=== PATIENT | female | born 1965 | race Caucasian/White ===

== ENCOUNTER 2024-08-18 08:17 | Outpatient (AMB) | payer MEDICARE, MEDICAID, SELFPAY ==
--- OUTSIDE RECORDS SUMMARY | 2024-03-02 10:20 | XMS_ITS ---
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 :1965 A ge:58 Y S ex:Female Date:03/02/2024 Address:[address] [place] [address] Subjective: * Chief Complaints: * 1 . 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 * Medical History: Objective: * Vitals: Assessment: Plan: * Treatment: * Images: Billing Information: * Visit Code: * Procedure Codes: * Electronic signature of Narcisa Russo MD on 08/18/2024 at 08:21 AM EDT Sign off status: Pending * Appointment Provider: Abhinav Russo M.D. Date: 03/02/2024 Generated for Luis cm/Edin/Chaiitting on: 08/18/2024 08:21 AM EDT
--- NOTE | 2024-08-18 08:22 | A.OFFVIS_ITS ---
Vital Signs 08/18/24 08:23 Height 5 ft 5 in Weight 185 lb 10.067 oz BMI 30.9 BP 136/76 Blood Pressure Location Lt brachial Position Sitting Pulse 84 Pulse Source Pulse Oximeter Pulse Oximetry (%) 95 Oxygen Delivery Method Room Air Intake Visit Reasons: Psoriatic Arthritis/MD approved Intake Note: Patient presents for a visit with psoriatic arthritis. Allergies No Known Allergies Allergy (Verified 08/18/24 08:27) HPI HPI Psoriatic Arthritis/ approved: Details: New patient evjoni. 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 She had shingles x3 last years. It affected her right facial region last time then back x2 prior in the last year. A few years she had shingles affected her back. She had to hold humira in the last two years. 2022 she had recurrent infections and has not consistently used Humira. She saw Dr. 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 She saw Dr. Minor 30 years ago who diagnosed her with PsA. Initially she presented with knee swelling then progressed dactyltis (20s) and polyarticular disease. Initially she had disability and required a wheelchair to ambulate. She had difficulty taking care of her young daughter at the time. Sulfasalazine not effective. Methotrexate - hair fell out. She was on celebrex since the beginning. Secondary treatment failure enbrel after 10 years. Then she was switched to Humira 2021. Meloxicam either ineffective or she had a side effect. Humira is controlling PsO. SHe had PsO on hands, feet, arms. SHe has a reminant of PsO behind ears, right elbow and left forearm. She caught right 5th finger in the door. Constant 5th PIP pain. Splinting makes it worse. She had deformity develop in the last year in right 5h finger. When she flares she has pain in her knuckles. She has pain in right 1-2nd toes. She saw [facility] last fall. MRI [facility] revealed metatarsal inflammation. She was in soft cast for a few months, which relieved the pain. Orthotics was ordered but patient did not pick it up. She feels like she is walking on her bones. Her ankle is not moving correctly. Hard to step down in the morning. She is not walking as she used to. No dactlitis MS hours She had SI joint injections from Dr. Hernandez with last injection occurring 3 years ago. She has had back pain when she was younger. She had uveitis bilateral 2019. She has costochondritis. Hx diverticulosis. Hepatic steotosis with fluctuating LFTs. She has history of fibromyalgia. Gabapentin was started for post herpetic neuralgia. Her spine doctor wants her to continue taking gabapentin for neck pain that has contri buted to nerve impingement symptoms in the past. Physical Exam Vital Signs: Last Vital Signs Pulse 84 08/18/24 08:23 BP 136/76 08/18/24 08:23 Pulse Ox 95 08/18/24 08:23 Oxygen Delivery Method Room Air 08/18/24 08:23 BMI result Body Mass Index 30.9 Const Other: General: Comfortable CVS: RRR Respiratory: clear to auscultation bilaterally. Good respiratory effort Skin: She has plaque psoriasis right extensor surface of elbow and papules left forearm. MSK: Tender right 2nd to 4th MCPs, 2nd to 4th PIPs with synovitis of 5th PIP and DIPJ. [place] nodes present including 5th DIPJ. Tender left 2nd and 3rd MCP. She has bilateral trochanteric bursa tenderness. Bilateral ankles and MTP s are tender. Slight synovitis of bilateral ankles. Assessment & Plan Assessment & Plan (1) Psoriatic arthritis: Comment: Uncontrolled on Humira. Psoriasis has been controlled on Humira. She has been taking Humira monthly instead of every 14 days due to fear of having a recurrent infection. Inadequate dosing is contributing to uncontrolled disease. 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 We discussed next steps in management of psoriatic arthritis and psoriasis. Discussed treatment options with patient. I recommend Cosentyx to treat both psoriasis and psoriatic arthritis. The dosing regimen for Cosentyx for indication psoriasis is higher (300mg) compared to psoriatic arthritis (150mg). We discussed that it would be best if Dr. Saenz is able to process the prior authorization for Cosentyx to cover treatment for both of her chronic autoimmune diseases. Another consideration could be for Stelara to treat both psoriasis and psoriatic arthritis. Prior to Humira she had severe psoriasis and psoriatic arthritis. I am avoiding TNF inhibitors at this time. I do not advise patient to stop Humira until Cosentyx is approved as her diseases can worsen. Answered patient's questions to her satisfaction. Rheumatology history: Dr. Minor 30 years ago diagnosed her with PsA. Initially she presented with knee swelling then progressed to involve dactyltis in her hands (20s) then became polyarticular. She had diffuse psoriasis involving her extremities. Sulfasalazine not effective. Methotrexate discontinued due to hair loss. She was on celebrex since the beginning of her diagnosis of psoriatic art hritis. Meloxicam either ineffective or she had a side effect. Secondary treatment failure with Enbrel after 10 years. Then she was switched to Humira 2021. Humira is controlling PsO with partial control of inflammatory arthritis but she has suffered recurrent infections 2022 and 2023 (singles x3). She has a reminant of PsO behind ears, right elbow and left forearm while on Humira. Code(s): L40.50 - Arthropathic psoriasis, unspecified Category: Medical Plan: Follow up with Dr. Saenz for consideration of processing PA Cosentyx to to treat both psoriasis and psoriatic arthritis Labs for drug monitoring on high-risk medication ordered Increased frequency of Humira subcutaneous injection to every 14 days to better control inflammatory arthritis until Cosentyx is approved. She is planning to have 2nd shingles vaccine in October. X-rays ordered to evaluate disease activity (bilateral hands, feet, and SI joints) Requesting MRI foot performed at [facility] last year Requesting last clinic note from 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 She can up titrate gabapentin as patient tolerates it to control pain from fibromyalgia. Information on fibromyalgia given to patient. 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 (current) drug therapy C Reactive Protein Today L40.50 - Arthropathic psoriasis, unspecified, Z79.899 - Other terminal system operator (current) drug therapy Erythrocyte Sedimentation Rate Today L40.50 - Arthropathic psoriasis, unspecified, Z79.899 - Other terminal system operator (current) drug therapy Hepatitis B,C Profile Today L40.50 - Arthropathic psoriasis, unspecified, Z79.899 - Other terminal system operator (current) drug therapy T Spot TB Today L40.50 - Arthropathic psoriasis, unspecified, Z79.899 - Other shelter (current) drug therapy XR Hand Ankur 2V Today L40.50 - Arthropathic psoriasis, unspecified, Z79.899 - Other shelter (current) drug therapy XR Knee Ankur 3V Today L40.50 - Arthropathic psoriasis, unspecified, Z79.899 - Other shelter (current) drug therapy Alanine Aminotransferase Today L40.50 - Arthropathic psoriasis, unspecified, Z79.899 - Other 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
--- OUTSIDE RECORDS SUMMARY | 2024-08-18 08:22 | XMS_ITS | Clinical Summary ---
Author Organization [facility] [address] [facility] Address [address] [place] [address] Phone Care Team Providers Care White Spooler Name Role Phone Elaina Lambert MD Primary Care Provider Allergies Active Allergy Reactions Criticality Noted Date Comments Cat Dander 08/17/2011 House Dust Mite 08/17/2011 Mold 10/17/2013 Nsaids (Non-Steroidal Anti-I nflammatory Drug) Other 12/30/2010 Medications UNABLE TO FIND ALLERGY INJECTION Inject as directed. Weekly Active LACTOBACILLUS RHAMNOSUS GG ORAL Take by mouth. Activ e ALPRAZolam (XANAX) 0.5 mg tablet Take 0.5 mg by mouth. Prn Active cholecalciferol (VITAMIN D-3) 250 mcg (10,000 unit) capsule Take by mouth daily. Active cyclobenzaprine (FLEXERIL) 10 mg tablet Take 10 mg by mouth 3 times daily as needed. Active levothyroxine (Synthroid) 112 mcg tablet 9 Active liothyronine (CYTOMEL) 5 mcg tablet 9 Active ondansetron (ZOFRAN) 4 mg tablet Take 1-2 Tabs by mouth every 8 hours as needed for Nausea. 1 Active traMADoL (ULTRAM) 50 mg tablet Take 50 mg by mouth daily as needed. Take one and a half tablets daily Active adalimumab (HUMIRA CF) 40 mg/0.4 mL pen Inject 0.4 mL (40 mg total) under the skin every 14 (fourteen) days. Pt takes name brand humira Active losartan (COZAAR) 25 mg tablet Take 1 tablet (25 mg total) by mouth 1 (one) time each day. Active celecoxib (CeleBREX) 200 mg capsule Take 1 capsule (200 mg total) by mouth 2 (two) times a day. Active polyethylene glycol (Golytely) 236-22.74-6.74 -5.86 gram solution Take 4L by mouth once for one dose. May substitue any PEG. Starting at 6PM the night before your procedure drink 1 8oz glasses at your own pace until you complete half of the gallon. Finish 2nd half of the gallon 5 hours before your procedure. 4000 mL 5 Active bisacodyL (DULCOLAX) 5 mg EC tablet Take 2 tablets by mouth right before beginning bowel prep. See instructions provided by the office 2 tablet 5 Active polyethylene glycol (Golytely) 236-22.74-6.74 -5.86 gram solution Take 4L by mouth once for one dose. May substitue any PEG. Starting at 6PM the night before your procedure drink 1 8oz glasses at your own pace until you complete half of the gallon. Finish 2nd half of the gallon 5 hours before your procedure. 4000 mL 5 Active bisacodyL (DULCOLAX) 5 mg EC tablet Take 2 tablets by mouth right before beginning bowel prep. See instructions provided by the office 2 tablet 5 Active Active Problems Problem Noted Date Diagnosed Date Diverticulitis large intestine 02/16/2024 Overview (02/16/2024): Patient has had 3 episodes-1 occurring in August with abscess formation, most recent flare was at the end of February 2019 Cervical spondylosis with radiculopathy 12/10/19 21 Overview (02/16/2024): [facility] Pyelonephritis 05/16/2020 Diverticulitis 09/13/2018 Overview (02/16/2024): Admission 09/07/18 at [facility] Fatty liver 10/16/2016 Hypercholesterolemia 10/16/2016 Depression 10/08/2014 Allergic rhinitis 11/22/2013 Overview (02/16/2024): Weekly IT injections Fibromyalgia 12/30/2010 Psoriatic arthritis ([facility] V24, [facility] V28) 0 04/16/2010 Overview (02/16/2024): [facility], on Humira Tinea versicolor 04/16/2010 Hypothyroidism 04/15/2010 Immunizations Name Administration Dates Next Due Influenza trivalent, with pr eservative (Fluzone; Afluria) 6mo and older 11/22/2013,03/21/2013,11/27/2011 Rabies Vaccine, For Intramus cular Injection Retired Code 08/28/2011,08/21/2011,08/17/2011,08/13 Surgical History Surgery Date Site/Laterality Comments TUBAL LIGATION 2003 PROCEDURE: HISTORICAL TUBAL LIGATION OTHER SURGICAL HISTORY 1991 PROCEDURE: LAPAROSCOPY PROCEDURE NEC ESOPHAGOGASTRODUODENOSCOPY 05/19/10 PROCEDURE: ID ESOPHAGOGASTRODUODENOSCOPY TRANSORAL DIAGNOSTIC; COMMENT: normal HYSTERECTOMY 08/01/10 PROCEDURE: HISTORICAL HYSTERECTOMY; COMMENT: Dr. Evans; cervix intact; partial UPPER GASTROINTESTINAL ENDOSCOPY 08/11/19 PROCEDURE: UPPER GI ENDOSCOPY/EXAM; COMMENT: hyperemia, biopsy pending COLONOSCOPY 05/29/[address] Beryl wilburn ESOPHAGOGASTRODUODENOSCOPY 08/11/19 19 minimal gastritis, H. Pylori negative Medical History Medical History Date Comments Psoriatic arthritis ([facility] V24, [facility] V28) DX:Psoriatic arthritis ([facility]) ; COMMENT: Dr. Hilliard; Alternative in [place] - Dr. Mittal Endometriosis DX:Endometriosis Hypothyroidism DX:Hypothyroidis m Fibromyalgia DX:Fibromyalgia Psoriasis DX:Psoriasis Diverticulosis of colon DX:Diver ticulosis of colon Diverticulitis large intestine D X:Diverticulitis large intestine; COMMENT: Patient has had 3 episodes-1 occurring in August with abscess formation, most recent flare was at the end of February 2019 Cervical spondylosis 12/09/2020 DX:Cervical spondylosis Ischemic colitis ([facility] V24) 01/2018 Family History Medical History Relation Name Comments Ovarian cancer Paternal Grandmother Relation Name Status Comments Brother Alive 1/2; RA Daughter Alive healthy; thyroi d nodules Father alcohol, PNA; l iver disease Maternal Grandfather Maternal Grandmother Mother lung cancer; sm oker Paternal Grandfather Paternal Grandmother Sister (Age 50) /2; DM; p ancreatic cancer Social History Tobacco Use Types Packs/Day Years Used Date Smoking Tobacco: Former Smokeless Tobacco: Never Alcohol Use Standard Drinks/Week Comments Yes 0 (1 standard drink = 0.6 oz pur e alcohol) rarely Comments Unknown Sex and Gender Information Value Date Recorded Sex Assigned at Not on file Legal Sex Female 2:28 AM EST Gender Identity Not on file Sexual Orientation Not on file Obstetrics History Last Filed Vital Signs Vital Sign Reading Time Taken Comments Blood Pressure - - Pulse - - Temperature - - Respiratory Rate - - Oxygen Saturation - - Inhaled Oxygen Concentration - - Weight 88.5 kg (195 lb) 05/12/2024 2:19 PM EDT Height 165.1 cm (5' 5 ) 05/12/2024 2:19 PM EDT Body Mass Index 32.45 05/12/2024 2:19 PM EDT Plan of Treatment Health Maintenance Due Date Last Done Comments Breast Cancer Screening 1965 Hepatitis B Vaccines (1 of 3 - 19+ 3-dose series) 09/01/1983 Pneumococcal Vaccine: 50+ Years (1 of 2 - PCV) 09/01/1983 Pneumococcal Vaccine: Pediatrics (0 to 5 Years) and At-Risk Patients (6 to 49 Years) (1 of 2 - PCV) 09/01/1983 Zoster Vaccines (1 of 2) 2014 Cervical Cancer Screening: Pap Smear 07/19/2020 07/19/2017, 07/19/2017, 07/19/2017 Depression Screening 01/11/2022 HIV Screening 01/11/2022 Medicare Annual Wellness Visit 01/11/2022 Social Influencers of Health Screening 01/11/2022 COVID-19 Vaccine ( season) 2023 02/28/2021, 07/26/2020, 06/26/2020 Hypertension/CHF/CAD Annual BMP Blood Test 05/12/2024 06/10/2020, 04/30/2020 Influenza Vaccine (#1) 2024 , 11/22/2013, 03/21/2013, Additional history exists Cholesterol Screening (Lipid Panel) 06/10/2025 06/10/2020 DTaP,Tdap,and Td Vaccines (2 - Td or Tdap) 12/08/2033 12/09/2023 Colorectal Cancer Screening: Colonoscopy 07/04/2034 07/04/2024, 05/28/2016, 05/28/2016 RSV Immunization Adult Patients (1 - 1-dose 75+ series) 09/01/2039 Hepatitis C Screening Completed 07/10/2016 HIB Vaccines Aged Out No longer eligi ble based on patient's age to complete this topic HPV Vaccines Aged Out No longer eligi ble based on patient's age to complete this topic Hepatitis A Vaccines Aged Out No long er eligible based on patient's age to complete this topic IPV Vaccines Aged Out No longer eligi ble based on patient's age to complete this topic MMR Vaccines Aged Out No longer eligi ble based on patient's age to complete this topic Meningococcal ACWY Vaccine Aged Out N o longer eligible based on patient's age to complete this topic Meningococcal B Vaccine Aged Out No l onger eligible based on patient's age to complete this topic RSV Immunization Patients Under 20 months Aged Out No longer eligible based on patient's age to complete this topic Varicella Vaccines Aged Out No longer eligible based on patient's age to complete this topic Procedures Procedure Name Priority Date/Time Associated Diagnosis Comments EXTERNAL COLONOSCOPY REPORT Routine 07/04/2024 3:17 PM EDT ANNUAL BMP BLOOD TEST Routine 06/10/2020 LIPID PANEL Routine 06/10/2020 PAP SMEAR Routine 07/19/2017 HEPATITIS C SCREENING Routine 07/10/2016 from Last 3 Months or Most Recently Relevant to Health Maintenance Results * External Colonoscopy Report (07/04/2024 3:17 PM EDT) Anatomical Region Laterality Modality Endoscopy us Historical Provider GI~PROCEDURE ORDERABLES F inal Result * Annual BMP Blood Test (06/10/2020) Annual BMP Blood Test Abstracted us Historical Provider HEALTH MAINTENANCE Final Result * (ABNORMAL) Lipid panel (06/10/2020) LDL/HDL Ratio 7(A) 0 - 4 Triglycerides 334(A) 0 - 150 mg/dL Cholesterol 270(A) 0 - 200 mg/dL HDL 37(A) >=40 mg/dL LDL Cholesterol 167(A) 0 - 100 mg/dL Blood Venous blood specimen / Unknown Historical Provider LAB BLOOD ORDERABLES Alley l Result * Pap smear (07/19/2017) 07/19/2017 Narrative HISTORICAL TESTING LAB RESULTING AGENCY - 07/23/2017 4:09 PM EDT [id number] THINPREP PAP, IMAGED: NEGATIVE FOR SQUAMOUS INTRAEPITHELIAL LESION AND MALIGNANCY . REACTIVE CELLULAR CHANGES. RESULT OF APTIMA HIGH RISK HPV ASSAY: NEGATIVE (SEROTYPES 16,18,31,33,35,39,45,51,52,56,58,59,66,68) SANFORD CRAWFORD(ASCP) (CASE SCREENED 07 21 2017) ALEXANDER FOURNIER M.D., PATHOLOGIST (CASE ELECTRONICALLY SIGNED 07 22 2017) ADEQUACY: SATISFACTORY. ENDOCERVICAL/TRANSFORMATION ZONE COMPONENT PRESENT. SOURCE: THINPREP PAP HPV ANY DX: REFLEX 16 AND 18, CERVICAL, IMAGED: CLINICAL INFORMATION: HPV ANY DIAGNOSIS. 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
[2024-08-18 08:23] VITALS: BP 136/76; PULSE 84; O2SAT 95; BMI 30.9
== END 2024-08-18 09:41 | disposition home or self-care (01) ==
LOC: HO.RHES 08:18
PROVIDERS: PCP Pediatrics; Visit Provider Internal Medicine Rheumatology
DX: L40.50 Arthropathic psoriasis, unspecified (principal); Z79.899 Other long term (current) drug therapy; M79.7 Fibromyalgia
CPT/HCPCS: 99205

== ENCOUNTER → 2024-08-18 08:17 | Outpatient (BNVA) | payer MEDICARE, MEDICAID, SELFPAY | PROVIDERS: PCP Pediatrics; Visit Provider Internal Medicine Rheumatology | DX: L40.50 Arthropathic psoriasis, unspecified (principal); L40.9 Psoriasis, unspecified; M79.7 Fibromyalgia; Z79.899 Other long term (current) drug therapy | CPT/HCPCS: 99202 ==

== ENCOUNTER 2024-08-28 09:49 | Outpatient (REF) | payer MEDICARE, MEDICAID, SELFPAY ==
--- OUTSIDE RECORDS SUMMARY | 2024-03-02 10:20 | XMS_ITS ---
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 [address] [address] 03/02/2024 Krystle Russo Plan Of Treatment No Information Progress Notes * RUTHY MARITZAANDERSONDOB:1965 (58 yo F)Acc No.[id number]:03/02/2024 Progress Note Patient: LEONA ANTONIO Appointment Provider: Abhinav Russo M.D. :1965 A ge:58 Y S ex:Female Date:03/02/2024 Address:[address] [place] [address] Subjective: * Chief Complaints: * 1 . 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 * Medical History: Objective: * Vitals: Assessment: Plan: * Treatment: * Images: Billing Information: * Visit Code: * Procedure Codes: * Electronic signature of Narcisa Russo MD on 08/28/2024 at 10:31 AM EDT Sign off status: Pending * Appointment Provider: Abhinav Russo M.D. Date: 0 03/02/2024 Generated for Luis cm/Edin/Chaiitting on: 0 08/28/2024 10:31 AM EDT
--- OUTSIDE RECORDS SUMMARY | 2024-08-28 10:32 | XMS_ITS | Clinical Summary ---
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..] PROCEDURE: LAPAROSCOPY PROCEDURE NEC ESOPHAGOGASTRODUODENOSCOPY 05/19/10 PROCEDURE: CT ESOPHAGOGASTRODUODENOSCOPY TRANSORAL DIAGNOSTIC; COMMENT: normal HYSTERECTOMY 08/01/10 PROCEDURE: HISTORICAL HYSTERECTOMY; COMMENT: Dr. Evans; cervix intact; partial UPPER GASTROINTESTINAL ENDOSCOPY 08/11/19 PROCEDURE: UPPER GI ENDOSCOPY/EXAM; COMMENT: hyperemia, biopsy pending COLONOSCOPY 05/29/[address] Beryl wilburn ESOPHAGOGASTRODUODENOSCOPY 08/11/19 19 minimal gastritis, H. Pylori negative Medical History Medical History Date Comments Psoriatic arthritis ([facility] V24, [facility] V28) DX:Psoriatic arthritis ([facility]) ; COMMENT: Dr. Hilliard; Alternative in [place] - Dr. Mittal Endometriosis DX:Endometriosis Hypothyroidism DX:Hypothyroidis m Fibromyalgia DX:Fibromyalgia Psoriasis DX:Psoriasis Diverticulosis of colon DX:Diver ticulosis of colon Diverticulitis large intestine D X:Diverticulitis large intestine; COMMENT: Patient has had 3 episodes-1 occurring in August with abscess formation, most recent flare was at the end of February 2019 Cervical spondylosis 12/09/2020 DX:Cervical spondylosis Ischemic colitis ([facility] V24) 01/2018 Family History Medical History Relation Name Comments Ovarian cancer Paternal Grandmother Relation Name Status Comments Brother Alive 1/2; RA Daughter Alive healthy; thyroi d nodules Father alcohol, PNA; l iver disease Maternal Grandfather Maternal Grandmother Mother lung cancer; sm oker Paternal Grandfather Paternal Grandmother Sister (Age 50) 1/2; DM; p ancreatic cancer Social History Tobacco [...] Years (1 of 2 - PCV) 09/01/1983 Zoster Vaccines (1 of 2) 2014 Cervical Cancer Screening: Pap Smear 07/19/2020 07/19/2017, 07/19/2017, 07/19/2017 HIV Screening 01/11/2022 Medicare Annual Wellness Visit 01/11/2022 Social Influencers of Health Screening 01/11/2022 COVID-19 Vaccine ( season) 2023 02/28/2021, 07/26/2020, 06/26/2020 Depression Screening 02/09/2024 Hypertension/CHF/CAD Annual BMP Blood Test 05/12/2024 06/10/2020, [...] RESULTING AGENCY - 07/23/2017 4:09 PM EDT [id number] THINPREP PAP, IMAGED: NEGATIVE FOR SQUAMOUS INTRAEPITHELIAL [...] Relevant to Health Maintenance Insurance [place] Advance Directives Documents on File Type Date Recorded 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 [address] [id number] PCP - General Internal Medicine 02/15/24
[2024-08-28 11:22] LABS: Baso%MD 0.9 %; Eos%MD 2.1 %; Hematocrit 38.9 % (37.0-47.0); Hemoglobin 12.9 g/dl (12.0-16.0); IG%MD 0.2 %; Lymph%MD 42.7 %; Mean Corpuscular HGB Conc 33.2 g/dl (31.0-35.0); Mean Corpuscular Hemoglobin 29.9 pg (27.0-33.0); Mean Corpuscular Volume 90.3 fL (80.0-98.0); Mono%MD 6.7 %; NRBC Abs Auto 0.000 X10*3/uL (0.0-0.012); NRBC Pct Auto 0.0 /100WBC (0.0-0.2); Neut%MD 47.4 %; Platelet Count 254 X10*3/uL (160-400); Red Blood Count 4.31 X10*6/uL (4.20-5.50); White Blood Count 5.4 X10*3/uL (4.8-10.8)
[2024-08-28 11:41] LABS: Alanine Aminotransferase 58 U/L (0-31); Aspartate Amino Transferase 48 U/L (5-31); Estimated Glomerular Filt Rate > 60
[2024-08-28 12:14] LABS: HBS Num1 0.07 mIU/mL (0-7.99); HBc Num1 0.10 S/CO (0.00-0.79); HBsAGNum1 0.38 S/CO (0.00-0.99); Hepatitis B Surface Antigen Negative (Negative); ~HepC Num1 0.17 S/CO (0.00-0.79); ~Hepatitis B Surface Antibody NONREACTIVE (Nonreactive); ~Hepatitis C Antibody Nonreactive (Nonreactive)
[2024-08-28 12:20] LABS: Band Neutrophils Percent 1 % (3-5); Basophils Abs Manual 0.1 X10*3/uL (0.0-0.2); Basophils Percent Manual 1 % (0-2); Eosinophils Absolute Manual 0.3 X10*3/uL (0.0-0.4); Eosinophils Percent Manual 5 % (0-4); Lymphocytes Absolute Manual 2.0 X10*3/uL (1.2-4.9); Lymphocytes Percent Manual 37 % (20-40); Monocytes Absolute Manual 0.1 X10*3/uL (0.1-1.2); Monocytes Percent Manual 2 % (2-11); Neutrophils Absolute Manual 3.0 X10*3/uL (2.0-8.3); Neutrophils Percent Manual 54 % (45-73); RBC Morphology NORMAL
[2024-08-30 19:18] LABS: TS Negative Control Passed; TS Panel A 0; TS Panel B 0; TS Positive Control Passed; TSpotTB Negative (Negative)
== END 2024-08-28 09:50 | disposition home or self-care (01) ==
LOC: HO.10HDL 09:49
PROVIDERS: Visit Provider Internal Medicine Rheumatology
DX: L40.50 Arthropathic psoriasis, unspecified (principal); Z79.899 Other long term (current) drug therapy; Z11.1 Encounter for screening for respiratory tuberculosis
CPT/HCPCS: 36415; 82565; 84450; 84460; 85007; 85027; 85652; 86140; 86481; 86704; 86706; 86803; 87340